=== PATIENT | female | born 1980 | race Caucasian/White ===

== ENCOUNTER → 2025-06-09 12:45 | Outpatient (BNVA) | payer BC, SELFPAY | PROVIDERS: Family Provider Family Medicine; Visit Provider Nurse Practitioner Women's Health | DX: R68.82 Decreased libido (principal); R53.83 Other fatigue | CPT/HCPCS: 80053; 82306; 82728; 83540; 84270; 84403; 84439; 84443; 84481 ==

== ENCOUNTER → 2025-07-18 11:18 | Outpatient (BNVA) | payer BC, SELFPAY | PROVIDERS: Family Provider Family Medicine; Visit Provider Nurse Practitioner Women's Health | DX: R61 Generalized hyperhidrosis (principal); R68.82 Decreased libido; R53.83 Other fatigue | CPT/HCPCS: 84403 ==

== ENCOUNTER → 2025-07-21 12:00 | Outpatient (BNVA) | payer BC, SELFPAY | PROVIDERS: Family Provider Family Medicine; Visit Provider Nurse Practitioner Women's Health | DX: R68.82 Decreased libido (principal); R53.83 Other fatigue | CPT/HCPCS: 84270; 84403 ==